=== PATIENT | male | born 1940 | race Two or more races ===

== ENCOUNTER 2017-08-08 10:38 | Outpatient (CLI) | payer MEDICARE, BC ==
[~2017-08-08 10:38] MED LIST: CALCIUM500 M2 PO; FISH OIL300 M1 PO
[2017-08-08 10:45] VITALS: BP 132/70
--- NOTE | 2017-08-08 11:12 | GI Initial Consult Note ---
History of Present Illness General Date patient seen: Aug 08, 2017 Time patient seen: 11:06 Referring physician: ETHEL Reason for Consultation: ROUTINE COLONOSCOPY Present Illness HPI 76 year old male patient referred by Dr. Aguilar for repeat routine colonoscopy. History of gastric CA. Had EUS pending back in 2012 but was never done. He presents to the clinic today with no GI symptoms. Denies any unintentional weight loss or changes in dietary habits. No signs of abuse or neglect. Patient is not fall risk. Last EGD/colonoscopy as noted below. DATE OF PROCEDURE: 07/31/2013 SURGEON: BERNADETTE HAMMER MD PROCEDURE: Upper endoscopy with biopsy. INDICATIONS: The patient has a history of gastric cancer. He was sent by his surgeon because he was complaining of left-sided abdominal pain. The surgeon recommended repeat endoscopy and also to get a CAT scan to make sure there is no recurrent cancer. SUMMARY OF FINDINGS: 1. Gastroesophageal junction at 35 cm with mild irregular Z-line suggesting acid reflux disease. 2. Possible bile reflux. 3. Some edema and erythema at the anastomosis, status post biopsy. 4. Status post random biopsy of the body of the stomach. Home Meds Reported Medications Aspirin* (ASPIR 81*) 81 Mg Tablet., 81 MG ORAL DAILY, TAB 08/08/17 Multivitamin (Multivitamins) 1 Each Tablet, 1 EACH PO, TAB 08/08/17 Calcium Carbonate (CALCIUM) 500 Mg Tablet, PO 07/31/13 [place]-3 Fatty Acids (FISH OIL) 300 Mg Capsule, PO 07/31/13 Med list reviewed/reconciled: Yes Allergies: Coded Allergies: ASPIRIN (Verified Allergy, Mild, "I DON'T FEEL WELL FROM IT", 07/31/13) Patient History History Provided By: Patient, Medical Record [facility] Narrative Gastric A cholesterol Past Surgical History: partial gastrectomy dental implants Pertinent Family History: none Social History: Reports: alcohol use - social Review of Systems All Other Systems: negative except mentioned in HPI Physical Exam BP 132/70 P 77 WT 174 lbs Sp02 EP Interpretation: reviewed, normal General Appearance: well appearing, no apparent distress, alert Head: normocephalic EENT: PERRL/EOMI, normal ENT inspection Neck: supple Respiratory: normal breath sounds, no respiratory distress Cardiovascular: normal rate Gastrointestinal: normal inspection, non tender, soft, normal bowel sounds, non -distended Rectal: deferred Genitourinary: deferred Musculoskeletal: normal inspection, back normal Neurologic: normal inspection, alert, oriented x3, responsive Psychiatric: normal inspection, judgement/insight normal, memory normal Skin: normal inspection, normal color, no rash, warm/dry, palpation normal, well hydrated Lymphatic: normal inspection, no adenopathy GI: Plan Problems: (1) Colonoscopy planned (2) History of gastric cancer Plan EGD/colonoscopy scheduled 08/14/17. - CLD & (Nulytely/Suprep/Movi-Prep) prep instructions given and acknowledged by patient. - NPO @ [place] day prior procedure explained. Seen with Dr. Hammer. Thank you for this patient referral. Simin Lemons N.P. Aug 08, 2017 11:12
[2017-08-08] MEDS ORDERED: ASPIR 8181 MG ORAL (11:20)
[2017-08-08] MEDS ORDERED: MULTIVITAMINS1 EA14 PO (11:20)
[2017-08-08] MEDS ORDERED: CHOLESTEROL MED (11:46)
[2017-08-09] MEDS ORDERED: PRAVASTATIN SOD80 M1 ORAL (13:46)
== END 2017-08-08 11:15 | disposition home or self-care (01) ==
LOC: PAN 10:38
DX: R10.9 Unspecified abdominal pain (principal); R60.0 Localized edema; Z88.6 Allergy status to analgesic agent; Z85.00 Personal history of malignant neoplasm of unspecified digestive organ
CPT/HCPCS: 99201

== ENCOUNTER 2017-08-14 08:45 | Day surgery (SDC) | payer MEDICARE, BC ==
[2017-08-14] VITALS (7 sets, daily range): BP systolic 115–134; BP diastolic 59–80
[~2017-08-14] VITALS: Ht 167.6 cm; Wt 78.9 kg
[~2017-08-14 08:45] MED LIST changes: +ASPIR 8181 MG ORAL; +CHOLESTEROL MED; +MULTIVITAMINS1 EA14 PO; +PRAVASTATIN SOD80 M1 ORAL
--- NOTE | 2017-08-14 09:16 | Anethesia Preoperative Eval ---
Anesthesia Pre-op PMH/ROS General Date of Evaluation: Aug 14, 2017 Time of Evaluation: 09:13 Anesthesiologist: charly ASA Score: ASA 3 Mallampati Score Class I : Soft palate, uvula, fauces, pillars visible Class II: Soft palate, uvula, fauces visible Class III: Soft palate, base of uvula visible Class IV: Only hard plate visible Mallampati Classification: Class II Surgeon: angely Diagnosis: hx/o gastric cancer, colon screening Surgical Procedure: egd/colonoscopy Anesthesia History: none Social History: smoking, alcohol use Family History: no anesthesia problems Allergies: Coded Allergies: LATEX (Verified Allergy, Severe, RASH, ITCHING, 08/14/17) Medications: see eMAR Past Medical History Gastrointestinal/Genitourinary: Reports: GERD, other - diverticulosis, gastritis, stomach cancer, hemorrhoids, Neurologic/Psychiatric: Reports: other - decreased visual acuity HEENT: Reports: other - dental implant Anesthesia Pre-op Phys. Exam Physician Exam Last Vital Signs Date Time Temp Pulse Resp B/P (MAP) Pulse Ox O2 Delivery O2 Flow Rate FiO2 08/14/17 09:18 98.3 61 16 134/73 98 Room Air Constitutional: NAD Neurologic: CN 2-12 intact Cardiovascular: RRR Respiratory: CTA Gastrointestinal: S/NT/ND Airway Exam Mallampati Score: Class II MO: full Neck: supple TMD: 2fb ROM: full Anesthesia Pre-op A/P Labs Labs Test 08/14/17 09:30 White Blood Count 5.5 K/UL (4.8-10.8) Red Blood Count 4.87 M/UL (4.70-6.10) Hemoglobin 15.2 G/DL (14.2-18.0) Hematocrit 45.2 % (42.0-52.0) Mean Corpuscular Volume 93 FL (80-99) Mean Corpuscular Hemoglobin 31.1 PG (27.0-31.0) Mean Corpuscular Hemoglobin Concent 33.6 G/DL (32.0-36.0) Red Cell Distribution Width 11.1 % (11.6-14.8) Platelet Count 157 K/UL (150-450) Mean Platelet Volume 7.2 FL (6.5-10.1) Neutrophils (%) (Auto) 54.1 % (45.0-75.0) Lymphocytes (%) (Auto) 33.0 % (20.0-45.0) Monocytes (%) (Auto) 8.4 % (1.0-10.0) Eosinophils (%) (Auto) 3.0 % (0.0-3.0) Basophils (%) (Auto) 1.5 % (0.0-2.0) Sodium Level 141 MMOL/L (136-145) Potassium Level 4.1 MMOL/L (3.5-5.1) Chloride Level 104 MMOL/L (98-107) Carbon Dioxide Level 26 MMOL/L (21-32) Anion Gap 11 mmol/L (5-15) Blood Urea Nitrogen 13 mg/dL (7-18) Creatinine 0.9 MG/DL (0.55-1.30) Estimat Glomerular Filtration Rate mL/min (>60) Glucose Level 77 MG/DL (74-106) Calcium Level 9.2 MG/DL (8.5-10.1) Total Bilirubin 1.0 MG/DL (0.2-1.0) Aspartate Amino Transf (AST/SGOT) 25 U/L (15-37) Alanine Aminotransferase (ALT/SGPT) 29 U/L (12-78) Alkaline Phosphatase 57 U/L (46-116) Total Protein 7.7 G/DL (6.4-8.2) Albumin 4.0 G/DL (3.4-5.0) Globulin 3.7 g/dL Albumin/Globulin Ratio 1.1 (1.0-2.7) Studies Pre-op Studies: EKG - sinus bradycardia, inferior posterior infarct Risk Assessment & Plan Assessment: asa3 Plan: mac Status Change Before Surgery: No Pre-Antibiotics Drug: CHANCE Gr Aug 14, 2017 09:16
[2017-08-14 09:53] LABS: BASOPHILS % (AUTO) 1.5 % (0.0-2.0); MEAN CORPUSCULAR HEMOGLOBIN 31.1 PG (27.0-31.0); MEAN CORPUSCULAR HGB CONC 33.6 G/DL (32.0-36.0); MEAN CORPUSCULAR VOLUME 93 FL (80-99); MEAN PLATELET VOLUME 7.2 FL (6.5-10.1); MONOCYTES % (AUTO) 8.4 % (1.0-10.0); NEUTROPHILS % (AUTO) 54.1 % (45.0-75.0); PLATELET COUNT 157 K/UL (150-450); RED BLOOD COUNT 4.87 M/UL (4.70-6.10); RED CELL DISTRIBUTION WIDTH 11.1 % (11.6-14.8); WHITE BLOOD COUNT 5.5 K/UL (4.8-10.8)
[2017-08-14 10:07] LABS: ALANINE AMINOTRANSFERASE 29 U/L (12-78); ALBUMIN/GLOBULIN RATIO 1.1 (1.0-2.7); ANION GAP 11 mmol/L (5-15); ASPARTATE AMINO TRANSFERASE 25 U/L (15-37); CALCIUM 9.2 MG/DL (8.5-10.1); CARBON DIOXIDE 26 MMOL/L (21-32); CHLORIDE 104 MMOL/L (98-107); CREATININE 0.9 MG/DL (0.55-1.30); POTASSIUM 4.1 MMOL/L (3.5-5.1); SODIUM 141 MMOL/L (136-145); TOTAL PROTEIN 7.7 G/DL (6.4-8.2)
--- NOTE | 2017-08-14 10:23 | Pre-Procedure Note/Attestation ---
Pre-Procedure Note/Attestation Complete Prior to Procedure Planned Procedure: not applicable Procedure Narrative: esophagogastroduodenoscopy and colonoscopy Indications for Procedure Pre-Operative Diagnosis: screening colon, h/o gastric cancer Attestation I attest that I discussed the nature of the procedure; its benefits; risks and complications; and alternatives (and the risks and benefits of such alternatives ), prior to the procedure, with the patient (or the patient's legal patient financial representative). I attest that, if there was a reasonable possibility of needing a blood transfusion, the patient (or the patient's legal patient financial representative) was given the [facility] standardized written summary, pursuant to the [place] Blood Safety Act ([place] Health and Safety Code # 1645, as amended). I attest that I re-evaluated the patient just prior to the surgery and that there has been no change in the patient's H&P, except as documented below: BERNADETTE ALVARENGA Aug 14, 2017 10:23
--- NOTE | 2017-08-14 10:24 | Short Stay Surgery H&P ---
History of Present Illness History of Present Illness Chief Complaint see recent consult note HPI Debbie Li is a 76 year old male who was admitted on for Hx Of Gastric Cancer,Colon Screening Patient History Allergies: Coded Allergies: LATEX (Verified Allergy, Severe, RASH, ITCHING, 08/14/17) PAST MEDICAL HISTORY: Past Surgeries: Social History: Medication History Scheduled Aspirin* (Aspir 81*), 81 MG ORAL DAILY, (Reported) Pravastatin Sod (Pravastatin Sod), 80 MG ORAL BEDTIME, (Reported) Miscellaneous Medications Calcium Carbonate (Calcium), Unknown Dose PO, (Reported) Multivitamin (Multivitamins), 1 EACH PO, (Reported) [place]-3 Fatty Acids (Fish Oil), Unknown Dose PO, (Reported) Physical Exam Vital Signs Last Vital Signs Date Time Temp Pulse Resp B/P (MAP) Pulse Ox O2 Delivery O2 Flow Rate FiO2 08/14/17 09:18 98.3 61 16 134/73 98 Room Air Labs Laboratory Tests Test 08/14/17 09:30 White Blood Count 5.5 K/UL (4.8-10.8) Red Blood Count 4.87 M/UL (4.70-6.10) Hemoglobin 15.2 G/DL (14.2-18.0) Hematocrit 45.2 % (42.0-52.0) Mean Corpuscular Volume 93 FL (80-99) Mean Corpuscular Hemoglobin 31.1 PG (27.0-31.0) H Mean Corpuscular Hemoglobin Concent 33.6 G/DL (32.0-36.0) Red Cell Distribution Width 11.1 % (11.6-14.8) L Platelet Count 157 K/UL (150-450) Mean Platelet Volume 7.2 FL (6.5-10.1) Neutrophils (%) (Auto) 54.1 % (45.0-75.0) Lymphocytes (%) (Auto) 33.0 % (20.0-45.0) Monocytes (%) (Auto) 8.4 % (1.0-10.0) Eosinophils (%) (Auto) 3.0 % (0.0-3.0) Basophils (%) (Auto) 1.5 % (0.0-2.0) Sodium Level 141 MMOL/L (136-145) Potassium Level 4.1 MMOL/L (3.5-5.1) Chloride Level 104 MMOL/L (98-107) Carbon Dioxide Level 26 MMOL/L (21-32) Anion Gap 11 mmol/L (5-15) Blood Urea Nitrogen 13 mg/dL (7-18) Creatinine 0.9 MG/DL (0.55-1.30) Estimat Glomerular Filtration Rate mL/min (>60) Glucose Level 77 MG/DL (74-106) Calcium Level 9.2 MG/DL (8.5-10.1) Total Bilirubin 1.0 MG/DL (0.2-1.0) Aspartate Amino Transf (AST/SGOT) 25 U/L (15-37) Alanine Aminotransferase (ALT/SGPT) 29 U/L (12-78) Alkaline Phosphatase 57 U/L (46-116) Total Protein 7.7 G/DL (6.4-8.2) Albumin 4.0 G/DL (3.4-5.0) Globulin 3.7 g/dL Albumin/Globulin Ratio 1.1 (1.0-2.7) Plan Attestation Are the patient's medical conditions optimized for surgery? BERNADETTE ALVARENGA Aug 14, 2017 10:24
[2017-08-14] MEDS ORDERED: Lidocaine 1% MPF 10mg/ml 5ml ONE (10:30)
[2017-08-14] MEDS ORDERED: Propofol 200mg/20ml IV ONE (10:30)
[2017-08-14] MEDS ORDERED: fentaNYL 100 mcg/2 mL IV PRN (10:45)
[2017-08-14] MEDS ORDERED: Midazolam 2mg/2ml Inj IVP PRN (10:45)
[2017-08-14] MEDS ORDERED: Atropine Inj 1mg/10ml Syr IV PRN (10:45)
[2017-08-14] MEDS ORDERED: DiphenhydrAMINE 50mg/ml Inj IVP PRN (10:45)
--- NOTE | 2017-08-14 10:51 | Endoscopy Procedure Note ---
Endoscopy Procedure Note Indication for Procedure: screening colon, h/o gastric cancer Procedures Performed: EGD, colonoscopy Operative Findings/Diagnosis: one colon polyp. diverticulosis Specimen: yes Pt Tolerated Procedure Well: Yes Estimated Blood Loss: none Anesthesiologist: mary Anesthesia: MAC Implant(s) used?: No 50 yrs or older w/o bx or poly: No 10yrs. F/U not recommended: Yes If not recommended, why?: Above average risk 10 yrs. F/U needed: Yes 18 years or older w/prev. colo: Yes <3yrs. since last colonoscopy: No BERNADETTE ALVARENGA Aug 14, 2017 10:51
--- NOTE | 2017-08-14 12:06 | Immediate Post-Op Evaluation ---
Immediate Post-Op Evalulation Immediate Post-Op Evalulation Procedure: egd/colonoscopy Date of Evaluation: Aug 14, 2017 Time of Evaluation: 11:07 IV Fluids: 300ml 0.9ns Blood Products: none Estimated Blood Loss: negligible Blood Pressure Systolic: 111 Blood Pressure Diastolic: 55 Pulse Rate: 59 Respiratory Rate: 18 O2 Sat by Pulse Oximetry: 100 Temperature (Fahrenheit): 97.5 Pain Score (1-10): 0 Nausea: No Vomiting: No Complications none Patient Status: awake, reacts, patent Hydration Status: adequate Drug: CHANCE Gr Aug 14, 2017 12:06
--- NOTE | 2017-08-14 12:08 | 48 Hour Post Anesthesia Eval ---
Post Anesthesia Evaluation Procedure: egd/colonoscopy Date of Evaluation: Aug 14, 2017 Time of Evaluation: 11:10 Blood Pressure Systolic: 120 0: 59 Pulse Rate: 59 Respiratory Rate: 18 Temperature (Fahrenheit): 97.5 O2 Sat by Pulse Oximetry: 100 Airway: patent Nausea: No Vomiting: No Pain Intensity: 0 Hydration Status: adequate Cardiopulmonary Status: stable Mental Status/LOC: patient returned to baseline Post-Anesthesia Complications: none Follow-up care needed: N/A CHANCE PAINTER Aug 14, 2017 12:08
--- NOTE | 2017-08-14 17:00 | Procedure Note ---
DATE OF PROCEDURE: 08/14/2017 SURGEON: Connor Hammer M.D. PROCEDURE: Upper endoscopy with biopsy and colonoscopy with biopsy. ANESTHESIA: Per Dr. Ramesh. INSTRUMENT: Olympus adult flexible upper endoscope and colonoscope. INDICATIONS: 1. History of gastric cancer, status post partial gastrectomy. 2. History of colonic polyps, here for followup colonoscopy. The procedure, risks, benefits, and possible consequences, including hemorrhage, aspiration, perforation and infection, and alternative treatments, were explained to the patient/legal guardian by Dr. Connor Hammer and the patient/legal guardian understood and accepted these risks. DESCRIPTION OF PROCEDURE: After informed consent was obtained and the patient was adequately sedated, Olympus upper endoscope was advanced from mouth into the stomach, then into the anastomosis and subsequently into the small intestine. The patient had evidence of medium-sized hiatal hernia without any obvious esophagitis. In the stomach, there was some bile reflux causing irritation at the anastomosis and the rest of the gastric body, which was biopsied. There was no obvious recurrent mass or ulceration at this time. At this time, the upper endoscope was retrieved. The patient was turned over for colonoscopy. First, a rectal exam was performed, which was positive for external and internal hemorrhoids. Then, the scope was advanced from the rectum into the cecum, then subsequently into the terminal ileum. Quality of prep was very good. The patient had 1 polyp that is diminutive and it is in the ascending colon, removed with the cold biopsy forceps technique. There was no further polyp seen in this colonoscopy examination. The patient had evidence of scattered diverticulosis in the left colon. Retroflexion in the rectum showed evidence of large internal hemorrhoids. SUMMARY OF FINDINGS: 1. Prior history of partial gastrectomy. 2. Hiatal hernia. 3. Bile-induced gastritis, status post biopsy. 4. One colonic polyp removed. See above for details. 5. Left-sided diverticulosis. 6. Internal hemorrhoids. RECOMMENDATIONS: 1. Follow up biopsies and treat accordingly. 2. We recommend repeat colonoscopy in 5 years. Connor Hammer M.D. DR: ROHITH JOB#: [id number] CC:
--- NOTE | 2017-08-14 18:28 | Cardiology Report ---
APPROVED REPORT EKG Measurement Heart [id number] [id number] Sinus bradycardia Inferior-posterior infarct, age undetermined Abnormal ECG
== END 2017-08-14 12:30 | disposition home or self-care (01) ==
LOC: GAS 08:45
DX: Z12.11 Encounter for screening for malignant neoplasm of colon (principal); K44.9 Diaphragmatic hernia without obstruction or gangrene; K57.90 Diverticulosis of intestine, part unspecified, without perforation or abscess without bleeding; K64.8 Other hemorrhoids; K29.50 Unspecified chronic gastritis without bleeding; D12.2 Benign neoplasm of ascending colon; Z86.010 Personal history of colon polyps; Z85.00 Personal history of malignant neoplasm of unspecified digestive organ; Z90.49 Acquired absence of other specified parts of digestive tract
CPT/HCPCS: 36415; 43239; 45380; 80053; 85025; 93005; J2704; 94003; 94150

== ENCOUNTER 2017-08-21 13:06 | Outpatient (CLI) | payer MEDICARE, BC ==
[2017-08-21 13:23] VITALS: BP 120/68
--- NOTE | 2017-08-21 14:21 | GI Progress Note ---
Assessment/Plan Problems: (1) History of gastric cancer ICD Codes: Z85.028 - Personal history of other malignant neoplasm of stomach SNOMED: 797388260, [id number] (2) Colonoscopy planned SNOMED: [id number] Status: stable Status Narrative Seen with Dr. Hammer. Assessment/Plan s/p colonoscopy SUMMARY OF FINDINGS reviewed with patient: 1. Prior history of partial gastrectomy. 2. Hiatal hernia. 3. Bile-induced gastritis, status post biopsy. 4. One colonic polyp removed. See above for details. 5. Left-sided diverticulosis. 6. Internal hemorrhoids. RECOMMENDATIONS: 1. Follow up biopsies and treat accordingly. 2. We recommend repeat colonoscopy in 5 years. Subjective Gastrointestinal/Abdominal: Reports: no symptoms Objective Last 24 Hour Vital Signs Date Time Temp Pulse Resp B/P (MAP) Pulse Ox O2 Delivery O2 Flow Rate FiO2 08/21/17 13:23 98.4 77 16 120/68 General Appearance: WD/WN, no apparent distress, alert Cardiovascular: normal rate Respiratory/Chest: normal breath sounds, no respiratory distress Abdominal Exam: normal bowel sounds, non tender, soft Extremities: normal range of motion, non-tender Simin Lemons N.P. Aug 21, 2017 14:21
== END 2017-08-21 13:38 | disposition home or self-care (01) ==
LOC: PAN 13:06
DX: K44.9 Diaphragmatic hernia without obstruction or gangrene (principal); Z85.028 Personal history of other malignant neoplasm of stomach; K29.70 Gastritis, unspecified, without bleeding; K63.5 Polyp of colon; K57.90 Diverticulosis of intestine, part unspecified, without perforation or abscess without bleeding; K64.8 Other hemorrhoids
CPT/HCPCS: 99211